=== PATIENT | male | born 1980 ===

== ENCOUNTER 2016-08-26 06:27 | Observation (INO) | payer OTHER ==
[2016-08-26 06:47] VITALS: BMI 29.7
--- NOTE | 2016-08-26 07:32 | ED PDOC ---
Upper Extremity Pain/Injury Time Seen by Provider: 08/26/16 07:18 Chief Complaint (Nursing): Finger,Hand,&Wrist Chief Complaint (Provider): Left Thumb injury History Per: Patient History/Exam Limitations: no limitations Current Symptoms Are (Timing): Still Present Severity: Mild Additional Complaint(s): Patient is a 35 year old male presenting to the ED complaining of left thumb injury status post cutting himself accidentally some time back. Seen and treated outpt.. Patient accidentally cut his left thumb with a knife. 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 Pt. has mild pain, but no numbness, tingles, weakness. Has a tendon rupture. PMD: none Past Medical History Reviewed: Historical Data, Nursing Documentation, Vital Signs Vital Signs: Last Vital Signs Temp 97.8 F 08/26/16 07:18 Pulse 63 08/26/16 07:18 Resp 18 08/26/16 07:18 BP 130/78 08/26/16 07:18 Pulse Ox 99 08/26/16 06:40 - Medical History PMH: No Chronic Diseases Denies: Chronic Kidney Disease - Family History Family History: States: Unknown Family Hx - Living Arrangements Living Arrangements: With Family - Home Medications Home Medications: Ambulatory Orders Medication Instructions Recorded No Known Home Med 08/26/16 - Allergies Allergies/Adverse Reactions: Allergies Allergy/AdvReac Type Severity Reaction Status Date / Time No Known Allergies Allergy Verified 08/26/16 06:47 Review of Systems Constitutional: Negative for: Fever, Weakness Cardiovascular: Negative for: Chest Pain Respiratory: Negative for: Shortness of Breath Musculoskeletal: Positive for: Other (left thumb injury). Negative for: Neck Pain, Shoulder Pain, Arm Pain, Leg Pain Neurological: Negative for: Weakness, Numbness Physical Exam - Reviewed Nursing Documentation Reviewed: Yes Vital Signs Reviewed: Yes - Physical Exam Appears: Positive for: Well, Non-toxic, No Acute Distress Head Exam: Positive for: ATRAUMATIC, NORMAL INSPECTION, NORMOCEPHALIC Skin: Positive for: Normal Color, Warm, DRY Neck: Positive for: Normal, Painless ROM Cardiovascular/Chest: Positive for: Regular Rate, Rhythm Respiratory: Positive for: Normal Breath Sounds Back: Positive for: Normal Inspection. Negative for: L CVA Tenderness, R CVA Tenderness Extremity: Positive for: Capillary Refill (less than 2 seconds), Other (closed laceration to the base of the left thumb). Negative for: Normal ROM (cannot extend thumb), Tenderness, Pedal Edema Neurologic/Psych: Positive for: Alert, Oriented - ECG O2 Sat by Pulse Oximetry: 99 Medical Decision Making Medical Decision Making: Time: 7:20 IPlan: Called Dr. Ring and was told to call Dr. Dean. Called Dr. Dean will be accept to the patient and will be admitted to his service. Pt. known to him and will need further eval and possibly surgery. Scribe Attestation: Documented by Bahman Powell acting as a scribe for Merrill Clay MD. Scribe Attestation: All medical record entries made by the Scribe were at my direction and personally dictated by me. I have reviewed the chart and agree that the record accurately reflects my personal performance of the history, physical exam, medical decision making, and the department course for this patient. I have also personally directed, reviewed, and agree with the discharge instructions and disposition. Disposition - Clinical Impression Clinical Impression: Tendon injury - Patient ED Disposition Is Patient to be Admitted: Yes Counseled Patient/Family Regarding: Studies Performed, Diagnosis - Disposition Disposition Time: 08:12 Condition: FAIR - POA Present On Arrival: Falls Or Trauma
[2016-08-26] MEDS ORDERED: Sodium Chloride 0.9% 1,000 ML IV STA (07:43)
[2016-08-26 08:28] LABS: BASO # 0.1 K/uL (0.0-0.2); BASO % 1.4 % (0.0-2.0); EOS # 0.3 K/uL (0.0-0.7); EOS % 4.5 % (0.0-4.0); HEMATOCRIT 45.8 % (35.0-51.0); LYMPH # 2.3 K/uL (1.0-4.3); MEAN CELL VOLUME 92.4 fl (80.0-94.0); MEAN CORPUSCULAR HEMOGLOBIN 31.1 pg (27.0-31.0); MEAN CORPUSCULAR HGB CONC 33.7 g/dL (33.0-37.0); MEAN PLATELET VOLUME 10.9 fl (7.2-11.7); MONO # 0.4 K/uL (0.0-0.8); MONO % 6.6 % (0.0-10.0); NEUT % 49.5 % (50.0-75.0); NRBC % 0.2 % (0.0-0.0); WHITE BLOOD COUNT 6.1 K/uL (4.8-10.8)
[2016-08-26 08:34] LABS: BLOOD UREA NITROGEN 21 mg/dl (9-20); CARBON DIOXIDE 26 mmol/L (22-30); CHLORIDE 105 mmol/L (98-107); GFR AFRICAN-AMERICAN > 60; GLUCOSE,RANDOM 104 mg/dL (75-110); PARTIAL THROMBOPLASTIN TIME 25.2 SECONDS (23.3-32.5); POTASSIUM 4.4 MMOL/L (3.6-5.0); SODIUM 144 mmol/l (132-148)
[2016-08-26] MEDS ORDERED: Propofol 10 mg/ml Inj (20 ML) ONE ×2 (09:36→10:06)
[2016-08-26] MEDS ORDERED: Midazolam 2 MG/2 ML VIAL ONE (09:36)
[2016-08-26] MEDS ORDERED: Lactated Ringer's 1,000 ML IV ONE (09:40)
[2016-08-26] MEDS ORDERED: HYDROmorphone 0.5 mg/0.5 ml ISec IVP PRN ×2 (11:18→11:48)
[2016-08-26] MEDS ORDERED: Lactated Ringer's 1,000 ML IV SCH (11:30)
[2016-08-26] MEDS ORDERED: Oxycodone/Acetaminophen 5/325 mg Tab PO PRN (11:42)
[2016-08-26 13:01] VITALS: RESP 18
--- NOTE | 2016-08-26 14:26 | CARD ---
APPROVED REPORT EKG Measurement Heart [id number] <Conclusion> Sinus bradycardia Otherwise normal ECG
[2016-08-26 15:56] VITALS: BP 122/66; PULSE 76; TEMP 98.1; O2SAT 98
--- NOTE | 2016-09-03 11:34 | OP ---
PROCEDURE DATE: 08/26/2016 SURGEON: Danielito Dean MD. OCCUPATIONAL THERAPIST PER DIEM: None. PREOPERATIVE DIAGNOSES: 1. Extensor pollicis longus tendon laceration, left thumb. 2. Left thumb laceration, open wound. 3. Scar tissue formation. 4. Tenosynovitis and digital nerve neuritis. POSTOPERATIVE DIAGNOSES: 1. Extensor pollicis longus tendon laceration, left thumb. 2. Left thumb laceration, open wound. 3. Scar tissue formation. 4. Tenosynovitis and digital nerve neuritis. OPERATION: 1. Left thumb extensor pollicis longus tendon primary repair. 2. Left thumb extensor tendon tenosynovectomy and tenolysis. 3. Left thumb digital nerve neurolysis. 4. Left thumb open wound exploration. ESTIMATED BLOOD LOSS: 0. SPECIMENS: None. COMPLICATIONS: None. ANESTHESIA: General. INDICATIONS: A 35-year-old male who sustained a laceration injury at the shop causing inability to actively extend his finger. The patient presented to the Emergency Room with continued pain and disc omfort of his digit, and concern for infection. The patient was taken to the operating room from the Emergency Room for exploration, debridement, and repair of the injured structures. Risks and benefi ts of the surgery were explained. Risks included, but not limited to bleeding, infection, tendon, ne rve, or vessel injury, instability, chronic pain, potential need for additional surgery in the future . The patient understood the above risks and elected to undergo the procedure. DESCRIPTION OF PROCEDURE: After successful administration of the anesthetic, a well-padded tournique t was applied to the left upper extremity. The entire extremity was then prepped and draped in stand lisbet surgical fashion. With a sterile marking pen, proposed incision was outlined. This was a zigzag incision over the dors um of the MP joint incorporating the transverse laceration site incision. The arm was then elevated and exsanguinated with an Esmarch bandage. The tourniquet was inflated to 250 mmHg, and the Esmarch was removed. An incision was made sharply. The superficial veins were cauterized. The skin flaps were elevated. Attention was directed identifying the sensory branches of the radial nerve. The nerves were identi fied, and ____ scar formation around them. Local neurolysis was performed to free up the nerve, and retracted them, thus, carefully protecting them. Then, the distal stump of the extensor pollicis gina deborah tendon was clearly identified. It was retracted distally. It was secured and withdrawn into the wound. The proximal portion of the stump was also identified and retracted. Again, it was secured and withdrawn into the wound. Both sides of the tendons were cleaned sharply with a knife. Then, lo danny tenosynovectomy and neurolysis was performed of the tendon to provide for more excursion of the 2 ends. Tendon was viable, and had good excursion, and was amenable to primary repair. The 2 ends of the tendon were repaired with a 4-0 nylon suture using a 4-strand technique, followed by 6-0 Prolene running suture. The patient had latter day of his thumb extension. Attention was assessed with tenodesis effect with full flexion of the wrist. The thumb demonstrated full IP extension, and with full extension of the wrist, the thumb demonstrated IP flexion. The woun d was then copiously irrigated and debrided. It was carefully inspected. There was no other structu ral injury identified. At this point, the tourniquet was deflated. Hemostasis was achieved meticulously with cautery. The skin wound was then closed with 4-0 nylon sutures. A sterile fluff dressing was used to protect the surgical repairs, and a volar thumb spica splint extending to the tip of the thumb to maintain full e xtension of the thumb and extension of the wrist. The patient tolerated the procedure well and was returned to the recovery room in excellent condition . Danielito Dean M.D. cc: [id number] TT: 09/03/2016 11:34:24 julissa
== END 2016-08-26 15:40 | disposition home or self-care (01) ==
LOC: H.ER 06:27 → H.ERHOLD 07:41 → H.MEDSURG2 12:59 → H.ERHOLD 12:59
PROVIDERS: ADMIT Orthopaedic Surgery; ATTEND Orthopaedic Surgery
DX: S66.222A Laceration of extensor muscle, fascia and tendon of left thumb at wrist and hand level, initial encounter (principal); S61.012A Laceration without foreign body of left thumb without damage to nail, initial encounter; W26.0XXA Contact with knife, initial encounter; Y93.G3 Activity, cooking and baking; Y92.9 Unspecified place or not applicable; M65.9 Synovitis and tenosynovitis, unspecified; G56.82 Other specified mononeuropathies of left upper limb